=== PATIENT | female | born 1975 | race Caucasian/White ===

== ENCOUNTER 2017-10-02 10:12 | Emergency (ER) | payer MEDICAID, OTHER ==
[~2017-10-02] VITALS: Ht 172.7 cm; Wt 97.0 kg
[~2017-10-02 10:12] MED LIST: CEPH500C3 PO; NEXI40CA PO; OXYC-360 PO
[2017-10-02 10:35] VITALS: BP 146/68; PULSE 92; RESP 16; TEMP 100.3; O2SAT 97
[2017-10-02] MEDS ORDERED: BUPR8SUB SL (11:29)
[2017-10-02] MEDS ORDERED: IBUPROFEN 600 MG TAB PO ONE (12:15)
--- NOTE | 2017-10-02 12:19 | PD ---
HPI . Cough and cold 3 days Chief Complaint: Cold / Flu Symptoms Time Seen by Provider: 12:09 Travel History International Travel<30 days: No Contact w/Intl Traveler<30days: No Traveled to known affect area: No History of Present Illness HPI 42-year-old female presents emergency department for evaluation of general malaise, fever and cough 3 days. Patient is a pack-a-day smoker 25 years. Patient fully major medical history is kidney stones. Only medication patient takes daily is Suboxone. Patient is febrile in triage. Patient states that she has had a fever and adamantly for 3 days. She's been taking ibuprofen to treat her fever. The fever is responsive to ibuprofen. Patient states she has a lot of chest congestion but the cough is nonproductive. Patient has a sore throat. Patient denies any chest pain, nausea, vomiting, diarrhea, ear pain. PFSH Past Medical History Cerebrovascular Accident: Yes (APPROX 1999.....NO RESIDUAL) Diminished Hearing: No GERD: Yes Hypertension: Yes Kidney Stones: Yes Influenza Vaccination: No ?: Not LMP: 2 WEEKS Past Surgical History Section: Yes (12/05/12) Genitourinary Surgery: Yes (STENTS FOR KIDNEY STONES) Social History Alcohol Use: No Tobacco Use: Yes (11/26 PPD) Substance Use: No Allergies-Medications (Allergen,Severity, Reaction): Coded Allergies: sulfamethoxazole (Unverified Allergy, Severe, UPSET STOMACH, 10/02/17) trimethoprim (Unverified Allergy, Severe, UPSET STOMACH, 10/02/17) Reported Meds & Prescriptions Reported Meds & Active Scripts Active Proair Hfa 8.5 GM Inh (Albuterol Sulfate) 90 Mcg/Act Aer 2 Puff INH Q6H PRN 108 mcg/actuation Tessalon Perles (Benzonatate) 100 Mg Cap 100 Mg PO TID PRN 10 Days Levaquin (Levofloxacin) 750 Mg Tablet 750 Mg PO DAILY 10 Days Reported Buprenorphine (Buprenorphine HCl) 8 Mg Subl 24 Mg SL DAILY Review of Systems Except as stated in HPI: all other systems reviewed are Neg Physical Exam Narrative GENERAL: Well-nourished, well-developed 42-year-old female patient that appears uncomfortable and is coughing. SKIN: Focused skin assessment warm/dry. HEAD: Normocephalic. Atraumatic. EYES: No scleral icterus. No injection or drainage. THROAT: Mild pharyngeal injection, No exudates or tonsillar hypertrophy. Airway is patent. NECK: Supple, trachea midline. No JVD or lymphadenopathy. CARDIOVASCULAR: Regular rate and rhythm without murmurs, gallops, or rubs. RESPIRATORY: Breath sounds equal bilaterally and coarse throughout. No accessory muscle use. GASTROINTESTINAL: Abdomen soft, non-tender, nondistended. MUSCULOSKELETAL: No cyanosis, or edema. Data Data Last Documented VS Vital Signs Date Time Temp Pulse Resp B/P (MAP) Pulse Ox O2 Delivery O2 Flow Rate FiO2 10/02/17 10:35 100.3 92 16 146/68 (94) 97 Orders Orders Influenzae A/B Antigen (10/02/17 12:14) Chest, Single Ap (10/02/17 12:14) Ibuprofen (Motrin) (10/02/17 12:15) Levofloxacin (Levaquin) (10/02/17 14:15) Ed Discharge Order (10/02/17 14:18) [facility] Medical Decision Making Medical Screen Exam Complete: Yes Emergency Medical Condition: Yes Differential Diagnosis Differential diagnoses include but not limited to URI, pharyngitis, pneumonia, bronchitis Narrative Course 42-year-old female presents to emergency room for evaluation of cough and fever 3 days. Patient is a pack-a-day smoker. Chest x-ray ordered and pending. Influenza ordered and pending. Influenza is negative. Chest x-ray shows a lateral interstitial opacities. Patient discharged home with prescription for Levaquin and Tessalon Perles and instructions to follow-up with her primary care return to emergency Department with any worsening condition. Last Impressions Chest X-Ray 10/02/17 1214 Signed Impressions: Service Date/Time: Monday, October 02, 2017 12:39 - CONCLUSION: Mild bilateral interstitial opacities suggesting atypical/viral pneumonia or noncardiogenic edema. Derian Lopez MD Diagnosis Primary Impression: Community acquired pneumonia Qualified Codes: J18.9 - Pneumonia, unspecified organism Referrals: Primary Care Physician Patient Instructions: Community Acquired Pneumonia (DC), General Instructions Additional Instructions: Please return to emergency department if your symptoms return or worsen. Follow up with your primary care provider. Take full course of antibiotic Levaquin for pneumonia May use Tessalon Perles to help with cough symptoms. Alternate ibuprofen and Tylenol as a for pain or fever. Quit smoking. Med/Other Pt SpecificInfo: Prescription(s) given Scripts Azithromycin (Azithromycin) 250 Mg Tab 250 MG PO DIRECTED for Infection, #6 TAB 0 Refills Take 2 tabs (500 mg) on day 1 then 1 tab daily x 4 days. Prov: Maggy Cates 10/02/17 Albuterol 8.5 GM Inh (Proair Hfa 8.5 GM Inh) 90 Mcg/Act Aer 2 PUFF INH Q6H Y for SHORTNESS OF BREATH, #1 INHALER 0 Refills 108 mcg/actuation Prov: Maggy Cates 10/02/17 Benzonatate (Tessalon Perles) 100 Mg Cap 100 MG PO TID Y for COUGH for 10 Days, CAP 0 Refills Prov: Maggy Cates 10/02/17 Disposition: 01 DISCHARGE HOME Condition: Stable Maggy Cates Oct 02, 2017 12:19
--- NOTE | 2017-10-02 12:57 | RADRPT ---
EXAM DATE/TIME: 10/02/2017 12:39 [place] COMPARISON: CHEST PA & LAT, October 21, 2012, 11:42. INDICATIONS : Short of breath MEDICAL HISTORY : None. SURGICAL HISTORY : None. ENCOUNTER: Initial ACUITY: 3 days PAIN SCORE: 0/10 LOCATION: Bilateral chest FINDINGS: Very mild, mostly interstitial perihilar and basilar opacities are noted. No dense or confluent conso lidation. No pleural effusion or pneumothorax. Heart size within normal limits. CONCLUSION: Mild bilateral interstitial opacities suggesting atypical/viral pneumonia or noncardiogenic edema. Derian Lopez MD on October 02, 2017 at 12:54 Board Certified Radiologist. This report was verified electronically.
[2017-10-02] MEDS ORDERED: LEVA750T9 PO (14:12)
[2017-10-02] MEDS ORDERED: BENZ100 PO (14:12)
[2017-10-02] MEDS ORDERED: LEVOFLOXACIN 750 MG TAB PO ONE (14:15)
[2017-10-02] MEDS ORDERED: ALBUAER3 INH (14:29)
[2017-10-02] MEDS ORDERED: AZIT250T3 PO (16:05)
== END 2017-10-02 14:33 | disposition home or self-care (01) ==
LOC: PHED 10:12 → PHEFT 14:33
DX: F17.210 Nicotine dependence, cigarettes, uncomplicated (principal); Z87.442 Personal history of urinary calculi; J18.9 Pneumonia, unspecified organism
CPT/HCPCS: 71010; 87804; 99284